=== PATIENT | male | born 1950 | race Hispanic/Latino ===

== ENCOUNTER 2017-07-27 09:08 | Day surgery (SDC) | payer BC, MEDICARE ==
[2017-07-22 12:00] VITALS: BMI 23.6
[2017-07-27] MEDS ORDERED: ceFAZolin 1 gm FROZEN Premix 1 GM/50 ML ML IVPB ONE ×2 (09:24→10:18)
[2017-07-27] MEDS ORDERED: HEPARIN-NS 5,000 UNITS/500 ML 5,000 UNIT/500 ML BAG IV ONE (09:25)
[2017-07-27] MEDS ORDERED: Propofol 10 mg/ml Inj (20 ML) ONE (09:35)
[2017-07-27] MEDS ORDERED: Midazolam 2 MG/2 ML VIAL ONE (09:55)
[2017-07-27 10:34] VITALS: BP 121/81; PULSE 98; RESP 20; TEMP 97.6; O2SAT 100
[2017-07-27 10:36] LABS: CALCIUM 8.6 mg/dl (8.6-10.4)
--- NOTE | 2017-07-27 12:03 | CP.PCM.PN ---
Subjective - Date & Time of Evaluation Date of Evaluation: 07/27/17 Time of Evaluation: 12:02 - Subjective Subjective: patient was fed at [facility] despite NPO refused to wait to NPO time needed per anesthesia will reschedule for 08/03 Objective - Vital Signs/Intake and Output Vital Signs (last 24 hours): Temp Pulse Resp BP Pulse Ox 97.6 F 98 H 20 121/81 100 07/27/17 10:16 07/27/17 10:16 07/27/17 10:16 07/27/17 10:16 07/27/17 10:16 - Labs Labs: 07/27/17 10:15
== END 2017-07-27 12:08 | disposition home or self-care (01) ==
LOC: C.SDS 09:08
PROVIDERS: ATTEND Surgery Vascular Surgery
DX: N18.6 End stage renal disease (principal); Z53.09 Procedure and treatment not carried out because of other contraindication
CPT/HCPCS: 36415; 36821; 80048; J2001